=== PATIENT | female | born 1980 | race Hispanic/Latino ===

== ENCOUNTER 2017-01-26 07:18 | Day surgery (SDC) | payer OTHER ==
[2017-01-26 07:40] VITALS: BMI 22.4
[2017-01-26] MEDS ORDERED: Propofol 10 mg/ml Inj (20 ML) ONE ×2 (08:49→09:00)
[2017-01-26] MEDS ORDERED: Lactated Ringer's 500 ML IV SCH (09:15)
[2017-01-26 09:28] VITALS: TEMP 98.5
[2017-01-26 09:36] VITALS: O2SAT 98
[2017-01-26 10:26] VITALS: BP 113/67; PULSE 69; RESP 14
== END 2017-01-26 10:25 | disposition home or self-care (01) ==
LOC: C.ENDO 07:18
PROVIDERS: ATTEND Internal Medicine Gastroenterology
DX: R13.10 Dysphagia, unspecified (principal); K31.7 Polyp of stomach and duodenum
CPT/HCPCS: 43239; 43251; 84703; 88305; 88312; 88313; 88342; J2704; J7120